=== PATIENT | male | born 1955 | race African-American/Black ===

== ENCOUNTER 2019-10-24 15:18 | Emergency (ER) | payer MEDICARE ==
[2019-10-24 15:35] VITALS: BP 105/57
--- NOTE | 2019-10-24 15:40 | ER Document Report ---
ED Medical Screen (RME) - General Chief Complaint: Chest Pain Stated Complaint: CHEST PAIN Time Seen by Provider: 10/24/19 15:39 Mode of Arrival: Ambulatory Notes: This 64-year-old male presented emergency room today stating he has chest pain shortness of breath as well as abdominal discomfort he missed dialysis today which she was supposed to get he normally gets it done he did not fact have it done last in [facility]. I greeted and performed a rapid initial assessment of this patient. Comprehensive ED assessment and evaluation of the patient, analysis of test results and completion of the medical decision making process will be conducted by additional ED providers. - Related Data Allergies/Adverse Reactions: hydralazine Allergy (Verified 10/24/19 15:36) Physical Exam - Vital signs Vitals: Temp Pulse Resp BP Pulse Ox 98.0 F 75 16 105/57 L 96 10/24/19 15:34 10/24/19 15:34 10/24/19 15:34 10/24/19 15:34 10/24/19 15:34 Course - Vital Signs Vital signs: Temp Pulse Resp BP Pulse Ox 98.0 F 75 16 105/57 L 96 10/24/19 15:34 10/24/19 15:34 10/24/19 15:34 10/24/19 15:34 10/24/19 15:34
[2019-10-24 16:29] LABS: ABSOLUTE LYMPHOCYTES (AUTO) 0.9 10^3/uL (0.5-4.7); ABSOLUTE MONOCYTES (AUTO) 0.5 10^3/uL (0.1-1.4); ABSOLUTE NEUT (AUTO) 2.6 10^3/uL (1.7-8.2); BASOPHILS % (AUTO) 0.8 % (0-2); EOSINOPHILS % (AUTO) 1.1 % (0-6); HEMOGLOBIN 11.3 g/dL (13.5-17.0); LYMPHOCYTES % (AUTO) 21.8 % (13-45); MEAN CORPUSCULAR HEMOGLOBIN 31.4 pg (27.0-33.4); MEAN CORPUSCULAR HGB CONC 33.2 g/dL (32.0-36.0); MEAN CORPUSCULAR VOLUME 94 fl (80-97); MONOCYTES % (AUTO) 12.5 % (3-13); PLATELET COUNT 137 10^3/uL (150-450); RED CELL DISTRIBUTION WIDTH 17.6 % (11.5-14.0); SEGMENTED NEUTROPHILS % (AUTO) 63.8 % (42-78); TOTAL CELLS COUNTED % (AUTO) 100 %; WHITE BLOOD COUNT 4.1 10^3/uL (4.0-10.5)
[2019-10-24 16:47] LABS: ALBUMIN 4.3 g/dL (3.5-5.0); ALKALINE PHOSPHATASE 63 U/L (38-126); ANION GAP 15 (5-19); ASPARTATE AMINO TRANSFERASE 12 U/L (17-59); BILIRUBIN,DIRECT 0.3 mg/dL (0.0-0.4); BILIRUBIN,TOTAL 0.6 mg/dL (0.2-1.3); BLOOD UREA NITROGEN 88 mg/dL (7-20); CALCIUM 8.8 mg/dL (8.4-10.2); CARBON DIOXIDE 28 mmol/L (22-30); CHLORIDE 91 mmol/L (98-107); GLUCOSE 176 mg/dL (75-110); POTASSIUM 5.2 mmol/L (3.6-5.0); TOTAL PROTEIN 7.4 g/dL (6.3-8.2)
--- NOTE | 2019-10-24 18:33 | ER Document Report ---
ED General - General Chief Complaint: Chest Pain Stated Complaint: CHEST PAIN Time Seen by Provider: 10/24/19 15:39 Mode of Arrival: Ambulatory Notes: 64-year-old male presents to the emergency department with a history of renal failure on hemodialysis. Presents to the emergency department department requesting dialysis today. He is from [place] were last dialyzed on , he has not acute shortness of breath, however, wants to have dialysis now. At the time I walked into the room, the patient is threatening to leave AGAINST MEDICAL ADVICE as he was told that we would not not be able to the provide hemodialysis in the emergency department. States that he is not having chest pain or shortness of breath and he is ready to go. - Related Data Allergies/Adverse Reactions: hydralazine Allergy (Verified 10/24/19 15:36) Past Medical History - Social History Smoking Status: Never Smoker Chew tobacco use (# tins/day): No Frequency of alcohol use: None Drug Abuse: None Family History: Reviewed & Not Pertinent Patient has homicidal ideation: No Review of Systems - Review of Systems Notes: Constitutional: Negative for fever. HENT: Negative for sore throat. Eyes: Negative for visual changes. Cardiovascular: Negative for chest pain. Respiratory: Negative for shortness of breath. Gastrointestinal: Negative for abdominal pain, vomiting or diarrhea. Genitourinary: See HPI. Musculoskeletal: Negative for back pain. Skin: Negative for rash. Neurological: Negative for headaches, weakness or numbness. 10 point ROS negative except as marked above and in HPI. Physical Exam - Vital signs Vitals: Temp Pulse Resp BP Pulse Ox 98.0 F 75 16 105/57 L 96 10/24/19 15:34 10/24/19 15:34 10/24/19 15:34 10/24/19 15:34 10/24/19 15:34 - Notes Notes: PHYSICAL EXAMINATION: Physical Exam: General: Well-nourished well-developed 64-year-old male in no acute distress HEENT: NC/AT, pupils equal round and reactive to light, MM moist,nares clear, oropharynx clear, airway patent Neck: supple, no adenopathy, no masses. Good range of motion Lungs: No respiratory distress CVS: Regular rate and rhythm no murmur gallop or rub Abdomen: Soft, active, nontender, no masses, no hepatosplenomegaly Ext: No edema, clubbing or cyanosis. Neuro: Alert and responsive, moving all 4 extremities on command, cranial nerves intact, no focal findings Skin: Intact no open lesions, no rash PSYCH: Normal mood, normal affect. Course - Re-evaluation Re-evalutation: 10/24/19 18:32 Patient is adamant that he is leaving and does not want to have anything else done. - Vital Signs Vital signs: Temp Pulse Resp BP Pulse Ox 98.0 F 75 16 105/57 L 96 10/24/19 15:36 10/24/19 15:34 10/24/19 15:34 10/24/19 15:34 10/24/19 15:34 - Laboratory Result Diagrams: 10/24/19 16:05 10/24/19 16:05 Laboratory results interpreted by me: 10/24/19 10/24/19 16:05 16:05 RBC 3.60 L Hgb 11.3 L Hct 34.0 L RDW 17.6 H Plt Count 137 L Sodium 134.4 L Potassium 5.2 H Chloride 91 L BUN 88 H Creatinine 12.49 H Est GFR ( Amer) 5 L Est GFR (MDRD) Non-Af 4 L Glucose 176 H AST 12 L Lipase 347.7 H 10/24/19 18:33 I have reviewed laboratory data and used this information for the treatment decisions regarding the patient. - EKG Interpretation by Me EKG shows normal: Sinus rhythm - Normal sinus rhythm with a rate of 72, first- degree AV block, probable left atrial abnormality. Discharge - Discharge Clinical Impression: Encounter for hemodialysis for end-stage renal disease Condition: Good Disposition: AGAINST MEDICAL ADVICE
--- NOTE | 2019-10-24 20:49 | EKG REPORT ---
SEVERITY:- ABNORMAL ECG - SINUS RHYTHM FIRST DEGREE AV BLOCK PROBABLE LEFT ATRIAL ABNORMALITY : Confirmed by: Miguelito Ornelas 24-Oct-2019 20:48:55
== END 2019-10-24 18:26 | disposition left against medical advice (07) ==
LOC: ER 15:18
DX: N18.6 End stage renal disease (principal); Z99.2 Dependence on renal dialysis; R07.9 Chest pain, unspecified; R06.02 Shortness of breath
CPT/HCPCS: 36415; 80053; 83690; 84484; 85025; 93005; 93010; 99285